=== PATIENT | female | born 1995 | race Caucasian/White ===

== ENCOUNTER 2016-03-23 22:07 | Emergency (ER) | payer OTHER ==
[~2016-03-23] VITALS: Ht 160 cm; Wt 59.8 kg
[2016-03-23 22:11] VITALS: TEMP 36.9; Ht 160 cm; Wt 59.8 kg
[2016-03-23] MEDS ORDERED: METOCLOPRAMIDE HCL INJ 5 MG/ML 2 ML VIAL IV STA (22:51)
[2016-03-23] MEDS ORDERED: SODIUM CHLORIDE 0.9% 1000ML 1,000 ML IV STA (22:51)
[2016-03-23] MEDS ORDERED: DiphenhydrAMINE HCL 50 MG/ML VIAL IV STA (22:51)
[2016-03-23] MEDS ORDERED: DEXAMETHASONE SOD INJ 10 MG/ML VIAL IV ONE (23:00)
[2016-03-23 23:37] LABS: BASO % 0.3 %; BASO ABS # 0.02 K/uL (0-0.2); COMPLETE YES; HEMATOCRIT 38.8 % (37-47); IG% 0.1 %; LYMPH % 31.1 %; LYMPH ABS # 2.13 K/uL (1.2-3.4); MEAN CORPUSCULAR HGB CONC 34.8 g/dl (32-36); MEAN PLATELET VOLUME 10.4 fL (7.4-10.4); MONO % 5.1 %; NEUT % 61.4 %; PLATELET COUNT 189 K/uL (130-400); RED BLOOD COUNT 4.36 M/uL (4.2-5.4); WHITE BLOOD COUNT 6.84 K/uL (4.8-10.8)
[2016-03-23 23:56] LABS: ALT/SGPT 16 U/L (12-78); AST/SGOT 10 U/L (15-37); BLOOD UREA NITROGEN 12 mg/dl (7-18); BUN/CREATININE RATIO 17.2 (10-20); CALCIUM 8.9 mg/dl (8.5-10.1); CARBON DIOXIDE 27 mmol/L (21-32); CHLORIDE 107 mmol/L (98-107); CREATININE 0.72 mg/dl (0.60-1.20); GLUCOSE 99 mg/dl (70-99); POTASSIUM 3.5 mmol/L (3.5-5.1); SODIUM 144 mmol/L (136-145)
[2016-03-23 23:58] LABS: ALKALINE PHOSPHATASE 46 U/L (45-117); C-REACTIVE PROTEIN < 0.29 mg/dl (0-0.29)
[2016-03-24] LABS: PREG INTERNAL NEGATIVE QC NEG CLEAR BACKGROUND; PREG INTERNAL POSITIVE QC POS CONTROL LINE
--- NOTE | 2016-03-24 01:01 | EMERGENCY ROOM VISIT NOTE ---
ED Visit Note First contact with patient: 22:44 I have personally seen and evaluated the patient with the physician trust operations assistant. I agree with the diagnostic/management decisions and have personally been involved in these decisions and agree with the diagnosis.
--- NOTE | 2016-03-24 01:09 | EMERGENCY ROOM VISIT NOTE ---
History First contact with patient: 22:44 Chief Complaint: RASH Stated Complaint: RED/PURPLE RASH ON R LEG,ALONG W/HEADACHE History of Present Illness The patient is a 20 year old female who presents to the Emergency Room with complaints of migraine today who also developed a rash to her right thigh. Patient states the rash is not itchy. It is not raised. No other rashes to her body. No new foods soaps or detergents. No heating pad to the area. No ice pack to the area. She does not sleep on the side. Unknown tick bites. She does not feel at risk for STI's. Patient discussed her headache as throbbing, ranging in severity 6 out of 10 throughout the frontal region similar to prior. Slow onset. Patient denies chest pain, dyspnea, fever, chills, vomiting diarrhea, neck stiffness, myalgias, arthralgias, joint swellings, weakness, vision problems, neck pain, sore throat, cold symptoms. Review of Systems See HPI for pertinent positives & negatives. A total of 10 systems reviewed and were otherwise negative. Past Medical/Surgical History Medical Problems: (1) Abdominal pain (2) Abdominal pain (3) Ankle contusion (4) Ankle contusion (5) Back pain (6) Chemical conjunctivitis (7) Contusion of foot (8) Contusion of foot (9) Cystitis (10) Cystitis (11) Dysuria (12) Dysuria (13) Fall down stairs (14) Fall down stairs (15) fourth degree perineal laceration (16) Herpes genitalis in women (17) Intrauterine (18) Left knee injury (19) Normal labor (20) at early stage (21) at early stage (22) Rash (23) Rash (24) Sprain of knee Surgical Problems: (1) H/O wisdom tooth extraction (2) S/P tonsillectomy and adenoidectomy Family History Gallbladder disease Social History Smoking Status: Never Smoker Alcohol Use: none Drug Use: none Marital Status: in relationship Housing Status: lives with family, lives with significant other Occupation Status: unemployed Current/Historical Medications No Active Prescriptions or Reported Meds Allergies Coded Allergies: No Known Allergies (Unverified , 03/23/16) Physical Exam Vital Signs Date Time Temp Pulse Resp B/P Pulse Ox O2 Delivery O2 Flow Rate FiO2 03/24/16 00:09 79 16 106/70 99 Room Air 03/23/16 22:11 36.9 77 16 119/79 99 Room Air Physical Exam VITALS: Vitals are noted on the nurse's note and reviewed by myself. Vital signs stable. GENERAL: Pleasant female, in no acute distress, nondiaphoretic, well-developed well-nourished. SKIN: Right lateral thigh 5 cm x 4 cm nonraised blanchable dermatitis with no central clearing. No bull's-eye rash. No lymphangitis. No purpura. No petechiae. No erythema nodosum. No rashes to the hands or feet. No oral rashes. The rest of the skin was without rashes, erythema, edema, or bruising. There is no tenting of the skin. Capillary reflex less than 2 seconds. HEAD: Normocephalic atraumatic. EARS: External auditory canals clear, tympanic membranes pearly stephens without erythema or effusion bilaterally. EYES: Pupils equal round and reactive to light and accommodation. Conjunctivae without injection, sclerae without icterus. Extraocular movements intact. NOSE: Patent, turbinates without inflammation or discharge. No sinus tenderness. MOUTH: Mucous membranes moist. Pharynx without erythema or exudate. Uvula midline. Airway patent. Tongue does not deviate. NECK: Supple without nuchal rigidity. No lymphadenopathy. No thyromegaly. Cervical spine is nontender. No JVD. No meningeal signs HEART: Regular rate and rhythm without murmurs gallops or rubs. LUNGS: Clear to auscultation bilaterally without wheezes, rales or rhonchi. No dullness to percussion. No retractions or accessory muscle use. ABDOMEN: Positive bowel sounds x 4. Normal tympanic percussion. Soft, nontender, without masses or organomegaly. Camejo sign negative. No guarding or rebound tenderness. MUSCULOSKELETAL: No muscle atrophy, erythema, or edema noted. NEURO: Patient was alert and oriented to person place and time. Normal sensation to light and sharp touch. No focal neurological deficits. Cranial nerves II through XII grossly intact. No pronator drift. Cerebellar exam intact. Medical Decision & Procedures Laboratory Results 03/23/16 23:20 Red Blood Count 4.36, Mean Corpuscular Volume 89.0, Mean Corpuscular Hemoglobin 31.0, Mean Corpuscular Hemoglobin Concent 34.8, Mean Platelet Volume 10.4, Neutrophils (%) (Auto) 61.4, Lymphocytes (%) (Auto) 31.1, Monocytes (%) (Auto) 5.1, Eosinophils (%) (Auto) 2.0, Basophils (%) (Auto) 0.3, Neutrophils # (Auto) 4.19, Lymphocytes # (Auto) 2.13, Monocytes # (Auto) 0.35, Eosinophils # (Auto) 0.14, Basophils # (Auto) 0.02 03/23/16 23:20 Test 03/23/16 23:20 White Blood Count 6.84 K/uL (4.8-10.8) Red Blood Count 4.36 M/uL (4.2-5.4) Hemoglobin 13.5 g/dL (12.0-16.0) Hematocrit 38.8 % (37-47) Mean Corpuscular Volume 89.0 fL (80-100) Mean Corpuscular Hemoglobin 31.0 pg (25-34) Mean Corpuscular Hemoglobin Concent 34.8 g/dl (32-36) Platelet Count 189 K/uL (130-400) Mean Platelet Volume 10.4 fL (7.4-10.4) Neutrophils (%) (Auto) 61.4 % Lymphocytes (%) (Auto) 31.1 % Monocytes (%) (Auto) 5.1 % Eosinophils (%) (Auto) 2.0 % Basophils (%) (Auto) 0.3 % Neutrophils # (Auto) 4.19 K/uL (1.4-6.5) Lymphocytes # (Auto) 2.13 K/uL (1.2-3.4) Monocytes # (Auto) 0.35 K/uL (0.11-0.59) Eosinophils # (Auto) 0.14 K/uL (0-0.5) Basophils # (Auto) 0.02 K/uL (0-0.2) RDW Standard Deviation 42.3 fL (36.4-46.3) RDW Coefficient of Variation 13.0 % (11.5-14.5) Immature Granulocyte % (Auto) 0.1 % Immature Granulocyte # (Auto) 0.01 K/uL (0.00-0.02) Erythrocyte Sedimentation Rate 2 mm/hr (0-21) Anion Gap 10.0 mmol/L (3-11) Est Creatinine Clear Calc Drug Dose 101.3 ml/min Estimated GFR () 137.8 Estimated GFR (Non- 118.9 BUN/Creatinine Ratio 17.2 (10-20) Calcium Level 8.9 mg/dl (8.5-10.1) Total Bilirubin 0.2 mg/dl (0.2-1) Direct Bilirubin < 0.1 mg/dl (0-0.2) Aspartate Amino Transf (AST/SGOT) 10 U/L (15-37) Alanine Aminotransferase (ALT/SGPT) 16 U/L (12-78) Alkaline Phosphatase 46 U/L (45-117) C-Reactive Protein < 0.29 mg/dl (0-0.29) Total Protein 6.6 gm/dl (6.4-8.2) Albumin 4.0 gm/dl (3.4-5.0) Human Chorionic Gonadotropin, Qual NEG (NEG) Lyme Disease IgG Antibody NEG (NEG) Medications Administered Medications (Trade) Dose Ordered Sig/Fortunato Route Start Time Stop Time Status Last Admin Dose Admin Metoclopramide HCl (Reglan Inj) 10 mg NOW STAT IV 03/23/16 22:51 03/23/16 22:55 DC 03/23/16 23:17 10 MG Diphenhydramine HCl 12.5 mg 12.5 mg NOW STAT IV 03/23/16 22:51 03/23/16 22:55 DC 03/23/16 23:17 12.5 MG Sodium Chloride (Nss 1000ml) 1,000 ml @ 999 mls/hr Q1H1M STAT IV 03/23/16 22:51 03/23/16 23:51 DC 03/23/16 22:51 999 MLS/HR Dexamethasone Sodium Phosphate (Decadron Inj) 10 mg NOW ONCE IV 03/23/16 23:00 03/23/16 23:01 DC 03/23/16 23:17 10 MG ED Course Prior records/ancillary studies reviewed. Triage Nursing notes reviewed. The patient's history was concerning for migraine and a rash. Differential diagnosis: Etiologies such as acute intracranial bleed, CVA, postural headache, meningitis, encephalitis, mass or mass effect, sinusitis, infection, temporal arteritis, trigeminal neuralgia, pseudotumor cerebri, tension headache, cluster headache, carbon monoxide exposure, migraine, contact dermatitis, viral exanthem , urticaria, allergic reaction, Borja-Rivas syndrome, toxic epidermal necrolysis, erythema multiforme, cellulitis, scabies, HSV, varicella, zoster, eczema, staph scalded skin syndrome, fungal infection, as well as others were entertained. Physical examination: Patient was alert and well-appearing ER treatment provided: Decadron, Reglan, Benadryl, IV fluids On reassessment the patient felt better. Diagnostic interpretation by me: The labs revealed no worrisome leukocytosis, anemia or thrombocytopenia.. Negative test The etiology for the patient's rash appears to be consistent with migraine and dermatitis. Patient had unremarkable workup as above. The rash is blanchable. No signs of cellulitis. No palpable abscess. Patient was advised to follow- up family care for further evaluation and workup for the rash. Patient was neurovascularly and neurologically intact. She is well-appearing. Patient had no meningeal signs. She is advised to return to the immediately for headache, fevers, confusion, spreading of rash, worsening signs or symptoms or as needed. By the evaluation outlined above emergent etiologies such as Borja-Rivas syndrome, toxic epidermal necrolysis, erythema multiforme, cellulitis, scabies, HSV, varicella, zoster, staph scalded skin syndrome, urticaria, allergic reaction, as well as others were deemed relatively unlikely. The pt informed about the findings as listed above. All questions were answered and pleased with the treatment. Return instructions were outlined and the patient was discharged in stable condition. case reviewed with my Attending Referral: The patient was referred back to their primary care physician for follow-up in 2 -3 days for a recheck of the current condition. Medical Decision as above Impression Primary Impression: Migraine Additional Impression: Dermatitis Departure Information Dispostion Home / Self-Care Condition GOOD Prescriptions No Active Prescriptions or Reported Meds Forms WORK / SCHOOL INSTRUCTIONS, HOME CARE DOCUMENTATION FORM, IMPORTANT VISIT INFORMATION Patient Instructions A Signature Page, Migraine Meds Lifestyle Change, Rash - [facility], My [facility] Additional Instructions Rest today in a quiet, peaceful, dark environment and get a full 8-10 hrs of sleep tonight. Avoid loud noises, smoke/smoking, alcohol, bright lights, stress, or physical exertion today to minimize the chance the headache may return. Continue current medications. Ibuprofen(Motrin, Advil) may be used for fever or pain. Use 600mg every six hours as needed. Take with food. Avoid using more than 2400mg in a 24 hour period. Do not use 2400mg per day for more than three consecutive days without physician direction. Prolonged inappropriate use can lead to stomach upset or ulcers. (AND/OR) Acetaminophen(Tylenol) may be used for fever or pain. Use 1000mg every six hours as needed. Avoid using more than 3000mg in a 24 hour period. Return to the ER for passing out, worsening headache, vision problems, neck stiffness/pain, fevers, vomiting, worsening of your condition, or as needed. Follow up with your primary physician and/or a neurologist in 2-3 days for a recheck of your current condition. If the rash persists, then follow-up with family care or dermatology. Problem Qualifiers Primary Impression: Migraine Migraine type: without aura Status migrainosus presence: without status migrainosus Intractability: not intractable Qualified Codes: G43.009 - Migraine without aura, not intractable, without status migrainosus
[2016-03-24 01:25] VITALS: BP 114/69; PULSE 78; O2SAT 98
== END 2016-03-24 01:28 | disposition home or self-care (01) ==
LOC: C.EDB 22:08 → C.EDC 03-24 01:28
DX: G43.909 Migraine, unspecified, not intractable, without status migrainosus (principal); L30.9 Dermatitis, unspecified; Z98.818 Other dental procedure status; Z90.89 Acquired absence of other organs

== ENCOUNTER 2016-07-26 19:12 | Emergency (ER) | payer OTHER ==
[~2016-07-26] VITALS: Ht 160 cm; Wt 61.2 kg
[2016-07-26 19:14] VITALS: TEMP 36.9; Ht 160 cm; Wt 61.2 kg
[2016-07-26] MEDS ORDERED: SODIUM CHLORIDE 0.9% 1000ML 1,000 ML IV STA (19:31)
[2016-07-26 20:00] LABS: BASO % 0.2 %; BASO ABS # 0.02 K/uL (0-0.2); COMPLETE YES; EOS % 1.4 %; HEMATOCRIT 45.3 % (37-47); IG% 0.1 %; LYMPH % 19.2 %; LYMPH ABS # 2.04 K/uL (1.2-3.4); MEAN CELL VOLUME 89.5 fL (80-100); MEAN CORPUSCULAR HEMOGLOBIN 30.6 pg (25-34); MEAN CORPUSCULAR HGB CONC 34.2 g/dl (32-36); MEAN PLATELET VOLUME 10.9 fL (7.4-10.4); MONO % 5.5 %; NEUT % 73.6 %; PLATELET COUNT 216 K/uL (130-400); RED BLOOD COUNT 5.06 M/uL (4.2-5.4); WHITE BLOOD COUNT 10.61 K/uL (4.8-10.8)
[2016-07-26 20:16] LABS: URINE APPEARANCE CLEAR (CLEAR); URINE BILIRUBIN NEG (NEG); URINE COLOR YELLOW; URINE NITRITE NEG (NEG); URINE PH 6.5 (4.5-7.5); UROBILINOGEN NEG (NEG); ZZUR CULT IF INDIC CLEAN CATCH NO
[2016-07-26 20:20] LABS: BUN/CREATININE RATIO 18.8 (10-20); CALCIUM 9.2 mg/dl (8.5-10.1); CREATININE 0.69 mg/dl (0.60-1.20); POTASSIUM 3.6 mmol/L (3.5-5.1)
[2016-07-26] MEDS ORDERED: MoRPHine SULFATE 4 MG/ML 1 ML CARP\\VIAL IV STA (20:20)
[2016-07-26 20:23] LABS: ALB/GLOB RATIO 1.4 (0.9-2)
[2016-07-26] MEDS ORDERED: BENZ100C7 PO (20:24)
[2016-07-26] MEDS ORDERED: AMOX875T PO (20:24)
[2016-07-26 20:27] LABS: MANUAL MICROSCOPIC REQUIRED? NO; REVIEW REQ? NO
--- NOTE | 2016-07-26 21:03 | DIAGNOSTIC IMAGING REPORT ---
EXAMINATION: PELVIC ULTRASOUND (transabdominal and endovaginal scanning) CLINICAL HISTORY: Right pelvic pain. History of ovarian cyst. COMPARISON STUDY: CT scan dated December 14, 2015, pelvic ultrasound dated 08/16/2015 FINDINGS: The uterus measured 10.2 x 4.9 x 6.1 cm. The endometrial stripe measured 14 mm. The right ovary measured 42 x 24 x 34 mm.. The left ovary measured 36 x 20 x 17 mm. There is no ultrasonographic evidence of ovarian torsion. It should be noted that ovarian torsion can be present with normal Doppler ultrasonographic findings. There is trace free fluid likely physiologic. IMPRESSION: Normal pelvic ultrasound. Electronically signed by: Dylan Flanagan M.D. 07/26/2016 9:02 PM Dictated Date/Time: 07/26/2016 8:57 PM
[2016-07-26] MEDS ORDERED: ONDANSETRON INJ 2 MG/ML 2 ML VIAL IV STA (21:44)
[2016-07-26] MEDS ORDERED: OPTIRAY 320 IV PRN (22:00)
--- NOTE | 2016-07-26 23:18 | EMERGENCY ROOM VISIT NOTE ---
History First contact with patient: 19:16 Chief Complaint: ABDOMINAL PAIN Stated Complaint: RIGHT AB PAIN Nursing Triage Summary: patient reports pelvic pain and hx of cyst,patient reports low urine output History of Present Illness The patient is a 21 year old female who presents to the Emergency Room with complaints of pelvic pain which began last night. The patient states that she has had pain in her right pelvic region. She also states she has had trouble urinating. She has had ovarian cysts in the past but states this feels different. She has been taking Tylenol without relief. She reports associated nausea with no vomiting. The pain is worse with walking. She denies any vaginal discharge. She is currently sexually active with one partner and denies any chance of STI or . She has a history of but denies any other abdominal surgeries. She rates her discomfort a 5/10. Review of Systems A complete 10 point review of systems was reviewed with the patient with pertinent positives and negatives as per history of present illness. All else were negative. Past Medical/Surgical History Medical Problems: (1) Abdominal pain (2) Abdominal pain (3) Ankle contusion (4) Ankle contusion (5) Back pain (6) Chemical conjunctivitis (7) Contusion of foot (8) Contusion of foot (9) Cystitis (10) Cystitis (11) Dysuria (12) Dysuria (13) Fall down stairs (14) Fall down stairs (15) fourth degree perineal laceration (16) Herpes genitalis in women (17) Intrauterine (18) Left knee injury (19) Normal labor (20) at early stage (21) at early stage (22) Rash (23) Rash (24) Sprain of knee Surgical Problems: (1) H/O wisdom tooth extraction (2) S/P tonsillectomy and adenoidectomy Family History Gallbladder disease Social History Smoking Status: Never Smoker Alcohol Use: none Drug Use: none Marital Status: in relationship Housing Status: lives with family, lives with significant other Occupation Status: unemployed Current/Historical Medications Scheduled Amoxicillin & Pot Clavulanate (Augmentin 875-125 mg), 1 TAB PO BID Scheduled PRN Benzonatate (Benzonatate), 100 MG PO TID PRN for Cough Allergies Coded Allergies: No Known Allergies (Unverified , 07/26/16) Physical Exam Vital Signs Date Time Temp Pulse Resp B/P Pulse Ox O2 Delivery O2 Flow Rate FiO2 07/27/16 01:12 88 18 100/52 98 07/26/16 23:47 91 18 97/55 99 Room Air 07/26/16 20:58 96 18 121/74 99 Room Air 07/26/16 19:14 36.9 80 18 133/66 99 Room Air Physical Exam VITALS: Vitals are noted on the nurse's note and reviewed by myself. Vital signs stable. GENERAL: This is a 21-year-old female, in no acute distress, nondiaphoretic, well-developed well-nourished. SKIN: Capillary reflex less than 2 seconds. HEENT: Normocephalic. PERRLA. EOMI. Nares patent. Mucous membranes moist. Neck is supple without nuchal rigidity. HEART: Regular rate and rhythm without murmurs gallops or rubs. LUNGS: Clear to auscultation bilaterally without wheezes, rales or rhonchi. ABDOMEN: Positive bowel sounds x 4. Soft, moderate tenderness to palpation of the right pelvic region. No guarding or rebound tenderness. PELVIC: External genitalia unremarkable. There is a small amount of whitish vaginal discharge. No evidence of cervicitis. No cervical motion tenderness or adnexal tenderness. NEURO: Patient was alert and oriented to person place and time. Medical Decision & Procedures ER Provider Diagnostic Interpretation: EXAMINATION: PELVIC ULTRASOUND (transabdominal and endovaginal scanning) CLINICAL HISTORY: Right pelvic pain. History of ovarian cyst. FINDINGS: The uterus measured 10.2 x 4.9 x 6.1 cm. The endometrial stripe measured 14 mm. The right ovary measured 42 x 24 x 34 mm.. The left ovary measured 36 x 20 x 17 mm. There is no ultrasonographic evidence of ovarian torsion. It should be noted that ovarian torsion can be present with normal Doppler ultrasonographic findings. There is trace free fluid likely physiologic. IMPRESSION: Normal pelvic ultrasound. Laboratory Results 07/26/16 19:48 Red Blood Count 5.06, Mean Corpuscular Volume 89.5, Mean Corpuscular Hemoglobin 30.6, Mean Corpuscular Hemoglobin Concent 34.2, Mean Platelet Volume 10.9, Neutrophils (%) (Auto) 73.6, Lymphocytes (%) (Auto) 19.2, Monocytes (%) (Auto) 5.5, Eosinophils (%) (Auto) 1.4, Basophils (%) (Auto) 0.2, Neutrophils # (Auto) 7.81, Lymphocytes # (Auto) 2.04, Monocytes # (Auto) 0.58, Eosinophils # (Auto) 0.15, Basophils # (Auto) 0.02 07/26/16 19:48 Test 07/26/16 19:38 07/26/16 19:48 07/26/16 23:05 Urine Color YELLOW Urine Appearance CLEAR (CLEAR) Urine pH 6.5 (4.5-7.5) Urine Specific Pearcy 1.030 (1.000-1.030) Urine Protein NEG (NEG) Urine Glucose (UA) NEG (NEG) Urine Ketones NEG (NEG) Urine Occult Blood NEG (NEG) Urine Nitrite NEG (NEG) Urine Bilirubin NEG (NEG) Urine Urobilinogen NEG (NEG) Urine Leukocyte Esterase NEG (NEG) Urine Test NEG (NEG) White Blood Count 10.61 K/uL (4.8-10.8) Red Blood Count 5.06 M/uL (4.2-5.4) Hemoglobin 15.5 g/dL (12.0-16.0) Hematocrit 45.3 % (37-47) Mean Corpuscular Volume 89.5 fL (80-100) Mean Corpuscular Hemoglobin 30.6 pg (25-34) Mean Corpuscular Hemoglobin Concent 34.2 g/dl (32-36) Platelet Count 216 K/uL (130-400) Mean Platelet Volume 10.9 fL (7.4-10.4) Neutrophils (%) (Auto) 73.6 % Lymphocytes (%) (Auto) 19.2 % Monocytes (%) (Auto) 5.5 % Eosinophils (%) (Auto) 1.4 % Basophils (%) (Auto) 0.2 % Neutrophils # (Auto) 7.81 K/uL (1.4-6.5) Lymphocytes # (Auto) 2.04 K/uL (1.2-3.4) Monocytes # (Auto) 0.58 K/uL (0.11-0.59) Eosinophils # (Auto) 0.15 K/uL (0-0.5) Basophils # (Auto) 0.02 K/uL (0-0.2) RDW Standard Deviation 41.5 fL (36.4-46.3) RDW Coefficient of Variation 12.8 % (11.5-14.5) Immature Granulocyte % (Auto) 0.1 % Immature Granulocyte # (Auto) 0.01 K/uL (0.00-0.02) Anion Gap 4.0 mmol/L (3-11) Est Creatinine Clear Calc Drug Dose 104.9 ml/min Estimated GFR () 142.2 Estimated GFR (Non- 122.7 BUN/Creatinine Ratio 18.8 (10-20) Calcium Level 9.2 mg/dl (8.5-10.1) Total Bilirubin 0.3 mg/dl (0.2-1) Aspartate Amino Transf (AST/SGOT) 15 U/L (15-37) Alanine Aminotransferase (ALT/SGPT) 22 U/L (12-78) Alkaline Phosphatase 63 U/L (45-117) Total Protein 7.6 gm/dl (6.4-8.2) Albumin 4.4 gm/dl (3.4-5.0) Globulin 3.2 gm/dl (2.5-4.0) Albumin/Globulin Ratio 1.4 (0.9-2) Date/Time Source Procedure Growth Status 07/26/16 23:05 Vaginal Swab Trichomonas Preparation - Final Complete Medications Administered Medications (Trade) Dose Ordered Sig/Fortunato Route Start Time Stop Time Status Last Admin Dose Admin Sodium Chloride (Nss 1000ml) 1,000 ml @ 999 mls/hr Q1H1M STAT IV 07/26/16 19:31 07/26/16 20:31 DC 07/26/16 19:31 999 MLS/HR Morphine Sulfate (MoRPHine SULFATE INJ) 4 mg NOW STAT IV 07/26/16 20:20 07/26/16 20:21 DC 07/26/16 20:55 4 MG Ondansetron HCl (Zofran Inj) 4 mg NOW STAT IV 07/26/16 21:44 07/26/16 21:45 DC 07/26/16 21:54 4 MG Magnesium Citrate (Citrate Of Magnesia Soln) 300 ml NOW ONCE PO 07/27/16 01:00 07/27/16 01:01 DC 07/27/16 01:00 300 ML ED Course The patient was evaluated as above. Labs were drawn and IV access was obtained. Patient was medicated with 4 mg morphine IV and 4 mg Zofran IV. Pelvic ultrasound was performed and read by radiology as above. Patient was reevaluated and had continued pain. Risks/benefits of performing an abdominal CT scan were discussed with the patient and she decided to proceed with CT scan. Medical Decision Differential diagnosis includes appendicitis, colitis, gastroenteritis, pelvic inflammatory disease, ovarian cyst, ovarian torsion, ectopic , among others. The patient is a 21-year-old female who presents today complaining of right pelvic pain. Labs revealed no leukocytosis, anemia or concerning electrolyte abnormalities. Urinalysis was not suggestive of infection. Urine was negative. Pelvic ultrasound was performed and was unremarkable. Pelvic exam was not suggestive of PID. Risks and benefits of CT scan were discussed with the patient and she did choose to proceed with CT scan to rule out appendicitis. The patient was signed out to Connie Hathaway PA-C at change of shift pending results of the CT scan. Please see her dictation for CT results and patient disposition. Impression Primary Impression: Right lower quadrant abdominal pain Departure Information Dispostion Home / Self-Care Condition GOOD Referrals No Doctor, Assigned (PCP) Patient Instructions My [facility] Additional Instructions You have been treated in the Emergency Department your Abdominal Pain. Laboratory results and imaging studies have ruled out any emergent causes for your abdominal pain which would warrant admission or surgery. For pain control, you can use the following [id number] medicines (if >12 yo): - Regular strength (325mg/tab) Tylenol (acetaminophen) 2 tabs every 4-6 hours as needed. Do not exceed 12 tablets in a 24 hour period. Avoid taking more than 4 grams (4000 mg) of Tylenol per day. This includes any other sources of acetaminophen you may take on a regular basis. - Regular strength (200 mg/tab) Advil (ibuprofen) 1-2 tabs every 4-6 hours as needed. Do not exceed a dose of 3200 mg per day. Drink plenty of water and stay well hydrated. 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 Return to the emergency department if your symptoms persist despite treatment plan outlined above or if the following symptoms occur: Worsening pain, fevers, chills, worsening nausea/vomiting, or any other new/concerning symptoms.
--- NOTE | 2016-07-27 00:58 | EMERGENCY ROOM VISIT NOTE ---
ED Visit Note Case is signed out to me from Cassy Yoder PA-C, pending CT and reevaluation in stable condition. Please see her dictation for further pressure return the treatment plan. Patient presents with right lower quadrant pain ultrasound. CT was ordered. Concerns for constipation. Patient was advised to take magnesium citrate in increase her fluid and fiber intake. She is advised to follow-up family care in a day or 2 or here in the ER sooner for abdominal pain, fevers, vomiting, worsening signs or symptoms or as needed. Patient does not have an acute abdomen on exam. She is well-appearing. She is tolerating fluids. She is discharged home in stable condition. CT ABDOMEN & PELVIS: Appendix is normal. Moderate amount of retained stool in the right hemicolon, suggesting constipation. No free air. No evidence of bowel obstruction. Liver, gallbladder, pancreas, kidneys and adrenals are unremarkable. Mild splenomegaly. Small amount of free fluid in the pelvis, likely physiologic. Radiologist: Luis Curtis MD #1 right lower quadrant abdominal pain #2 constipation Magnesium citrate: Drink half the bottle when you get home, if you do not have a bowel movement within 6 hours then drink the rest. Recommend that you stay near a toilet. Increase your fluid and fiber intake. Ibuprofen(Motrin, Advil) may be used for fever or pain. Use 600mg every six hours as needed. Take with food. Avoid using more than 2400mg in a 24 hour period. Do not use 2400mg per day for more than three consecutive days without physician direction. Prolonged inappropriate use can lead to stomach upset or ulcers. (AND/OR) Acetaminophen(Tylenol) may be used for fever or pain. Use 1000mg every six hours as needed. Avoid using more than 3000mg in a 24 hour period. Rest and drink plenty of fluids as tolerated. Continue current medications. Avoid strenuous activities and anything that worsens your pain. Resume normal activities once your symptoms resolve. Return to the ER immediately for worsening or persistent abdominal pain, vomiting, fevers, chest pains, difficulty breathing, worsening of your condition , or as needed. Follow up with your primary physician in 2-3 days for a recheck of your current condition. Problem List Medical Problems: (1) Abdominal pain Status: Resolved (2) Abdominal pain Status: Resolved (3) Ankle contusion Status: Resolved (4) Ankle contusion Status: Resolved (5) Back pain Status: Resolved (6) Chemical conjunctivitis Status: Resolved (7) Contusion of foot Status: Resolved (8) Contusion of foot Status: Resolved (9) Cystitis Status: Resolved (10) Cystitis Status: Resolved (11) Dysuria Status: Resolved (12) Dysuria Status: Resolved (13) Fall down stairs Status: Resolved (14) Fall down stairs Status: Resolved (15) fourth degree perineal laceration Status: Resolved (16) Herpes genitalis in women Status: Chronic (17) Intrauterine Status: Resolved (18) Left knee injury Status: Resolved (19) Normal labor Status: Resolved (20) at early stage Status: Resolved (21) at early stage Status: Resolved (22) Rash Status: Resolved (23) Rash Status: Resolved (24) Sprain of knee Status: Resolved Surgical Problems: (1) H/O wisdom tooth extraction Status: Resolved (2) S/P tonsillectomy and adenoidectomy Status: Resolved Current/Historical Medications Scheduled Amoxicillin & Pot Clavulanate (Augmentin 875-125 mg), 1 TAB PO BID Scheduled PRN Benzonatate (Benzonatate), 100 MG PO TID PRN for Cough Allergies Coded Allergies: No Known Allergies (Unverified , 07/26/16) Vital Signs Date Time Temp Pulse Resp B/P Pulse Ox O2 Delivery O2 Flow Rate FiO2 07/26/16 23:47 91 18 97/55 99 Room Air 07/26/16 20:58 96 18 121/74 99 Room Air 07/26/16 19:14 36.9 80 18 133/66 99 Room Air Laboratory Results 07/26/16 19:48 Red Blood Count 5.06, Mean Corpuscular Volume 89.5, Mean Corpuscular Hemoglobin 30.6, Mean Corpuscular Hemoglobin Concent 34.2, Mean Platelet Volume 10.9, Neutrophils (%) (Auto) 73.6, Lymphocytes (%) (Auto) 19.2, Monocytes (%) (Auto) 5.5, Eosinophils (%) (Auto) 1.4, Basophils (%) (Auto) 0.2, Neutrophils # (Auto) 7.81, Lymphocytes # (Auto) 2.04, Monocytes # (Auto) 0.58, Eosinophils # (Auto) 0.15, Basophils # (Auto) 0.02 07/26/16 19:48 Test 07/26/16 19:38 07/26/16 19:48 07/26/16 23:05 Urine Color YELLOW Urine Appearance CLEAR (CLEAR) Urine pH 6.5 (4.5-7.5) Urine Specific [place] 1.030 (1.000-1.030) Urine Protein NEG (NEG) Urine Glucose (UA) NEG (NEG) Urine Ketones NEG (NEG) Urine Occult Blood NEG (NEG) Urine Nitrite NEG (NEG) Urine Bilirubin NEG (NEG) Urine Urobilinogen NEG (NEG) Urine Leukocyte Esterase NEG (NEG) Urine Test NEG (NEG) White Blood Count 10.61 K/uL (4.8-10.8) Red Blood Count 5.06 M/uL (4.2-5.4) Hemoglobin 15.5 g/dL (12.0-16.0) Hematocrit 45.3 % (37-47) Mean Corpuscular Volume 89.5 fL (80-100) Mean Corpuscular Hemoglobin 30.6 pg (25-34) Mean Corpuscular Hemoglobin Concent 34.2 g/dl (32-36) Platelet Count 216 K/uL (130-400) Mean Platelet Volume 10.9 fL (7.4-10.4) Neutrophils (%) (Auto) 73.6 % Lymphocytes (%) (Auto) 19.2 % Monocytes (%) (Auto) 5.5 % Eosinophils (%) (Auto) 1.4 % Basophils (%) (Auto) 0.2 % Neutrophils # (Auto) 7.81 K/uL (1.4-6.5) Lymphocytes # (Auto) 2.04 K/uL (1.2-3.4) Monocytes # (Auto) 0.58 K/uL (0.11-0.59) Eosinophils # (Auto) 0.15 K/uL (0-0.5) Basophils # (Auto) 0.02 K/uL (0-0.2) RDW Standard Deviation 41.5 fL (36.4-46.3) RDW Coefficient of Variation 12.8 % (11.5-14.5) Immature Granulocyte % (Auto) 0.1 % Immature Granulocyte # (Auto) 0.01 K/uL (0.00-0.02) Anion Gap 4.0 mmol/L (3-11) Est Creatinine Clear Calc Drug Dose 104.9 ml/min Estimated GFR () 142.2 Estimated GFR (Non- 122.7 BUN/Creatinine Ratio 18.8 (10-20) Calcium Level 9.2 mg/dl (8.5-10.1) Total Bilirubin 0.3 mg/dl (0.2-1) Aspartate Amino Transf (AST/SGOT) 15 U/L (15-37) Alanine Aminotransferase (ALT/SGPT) 22 U/L (12-78) Alkaline Phosphatase 63 U/L (45-117) Total Protein 7.6 gm/dl (6.4-8.2) Albumin 4.4 gm/dl (3.4-5.0) Globulin 3.2 gm/dl (2.5-4.0) Albumin/Globulin Ratio 1.4 (0.9-2) Date/Time Source Procedure Growth Status 07/26/16 23:05 Vaginal Swab Trichomonas Preparation - Final Complete Medications Administered Medications (Trade) Dose Ordered Sig/Fortunato Route Start Time Stop Time Status Last Admin Dose Admin Sodium Chloride (Nss 1000ml) 1,000 ml @ 999 mls/hr Q1H1M STAT IV 07/26/16 19:31 07/26/16 20:31 DC 07/26/16 19:31 999 MLS/HR Morphine Sulfate (MoRPHine SULFATE INJ) 4 mg NOW STAT IV 07/26/16 20:20 07/26/16 20:21 DC 07/26/16 20:55 4 MG Ondansetron HCl (Zofran Inj) 4 mg NOW STAT IV 07/26/16 21:44 07/26/16 21:45 DC 07/26/16 21:54 4 MG Departure Information Impression Primary Impression: Right lower quadrant abdominal pain Dispostion Home / Self-Care Condition GOOD Referrals No Doctor, Assigned (PCP) Forms HOME CARE DOCUMENTATION FORM, IMPORTANT VISIT INFORMATION Patient Instructions My [facility] Additional Instructions You have been treated in the Emergency Department your Abdominal Pain. Laboratory results and imaging studies have ruled out any emergent causes for your abdominal pain which would warrant admission or surgery. For pain control, you can use the following cuiu-rsv-lwddufu medicines (if >12 yo): - Regular strength (325mg/tab) Tylenol (acetaminophen) 2 tabs every 4-6 hours as needed. Do not exceed 12 tablets in a 24 hour period. Avoid taking more than 4 grams (4000 mg) of Tylenol per day. This includes any other sources of acetaminophen you may take on a regular basis. - Regular strength (200 mg/tab) Advil (ibuprofen) 1-2 tabs every 4-6 hours as needed. Do not exceed a dose of 3200 mg per day. Drink plenty of water and stay well hydrated. 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 Return to the emergency department if your symptoms persist despite treatment plan outlined above or if the following symptoms occur: Worsening pain, fevers, chills, worsening nausea/vomiting, or any other new/concerning symptoms.
[2016-07-27] MEDS ORDERED: MAGNESIUM CITRATE 296 ML/BTL PO ONE (01:00)
[2016-07-27 01:12] VITALS: BP 100/52; PULSE 88; O2SAT 98
--- NOTE | 2016-07-27 07:21 | DIAGNOSTIC IMAGING REPORT ---
ABDOMEN AND PELVIS CT WITH IV AND ORAL CONTRAST CT DOSE: 293.40 mGy.cm HISTORY: Right lower quadrant abdominal pain. TECHNIQUE: Multiaxial CT images of the abdomen and pelvis were performed following the use of intravenous and oral contrast. COMPARISON STUDY: Abdomen and pelvis CT 12/14/2015. FINDINGS: The lung bases are clear. No fractures within the visualized osseous structures. The liver, gallbladder, pancreas, adrenal glands, and kidneys are unremarkable. Normal bladder, uterus, and bilateral adnexa. Trace pelvic free fluid. No bowel wall thickening or obstruction. Normal appendix. No retroperitoneal lymphadenopathy. Stable borderline splenomegaly. Moderate stool within the proximal colon IMPRESSION: 1. No bowel wall thickening or obstruction. 2. Normal appendix. 3. Trace pelvic free fluid. This is likely physiologic. 4. Moderate stool within the proximal colon. 5. Stable borderline splenomegaly. Electronically signed by: Terence Mai M.D. 07/27/2016 7:20 AM Dictated Date/Time: 07/27/2016 7:16 AM
[2016-07-29 11:39] LABS: CHLAMYDIA TRACH RNA*** NOT DETECTED (NOT DETECTED); GC (NEIS GONORRHOEAE)RNA** NOT DETECTED (NOT DETECTED)
[2017-01-12] MEDS ORDERED: OXYC1TAB3 PO (21:13)
== END 2016-07-27 01:14 | disposition home or self-care (01) ==
LOC: C.EDB 19:13 → C.EDC 07-27 01:14
DX: R10.31 Right lower quadrant pain (principal); K59.00 Constipation, unspecified

== ENCOUNTER 2016-08-14 20:17 | Emergency (ER) | payer OTHER ==
[~2016-08-14] VITALS: Ht 160 cm; Wt 61.8 kg
[~2016-08-14 20:17] MED LIST: AMOX875T PO; BENZ100C7 PO
[2016-08-14 20:26] VITALS: TEMP 36.8; O2SAT 97; Ht 160 cm; Wt 61.8 kg
[2016-08-14] MEDS ORDERED: PENICILLIN HOME PACK 250MG (4)BTL PO ONE (20:45)
[2016-08-14] MEDS ORDERED: TYLENOL #3 HOME PACK PO ONE (21:00)
[2016-08-14] MEDS ORDERED: PENI-82 PO (21:21)
--- NOTE | 2016-08-14 21:22 | EMERGENCY ROOM VISIT NOTE ---
ED Visit Note First contact with patient: 20:29 CHIEF COMPLAINT: Toothache HISTORY OF PRESENT ILLNESS: This 21-year-old female patient presented to the emergency department ambulatory complaining of left jaw pain for the past 4 days. The patient states that she has had pain in her left upper jaw for the past 4 days. She called the dentist and states that she does have an appointment set up in 1 month. She has had difficulty eating due to the pain. The pain is now steady and severe and radiates to the face and the left ear. They rate their pain a 7/10 and the ibuprofen and Tylenol they have been taking has not relieved the pain. Denies facial swelling or fever. The patient denies any discharge from the mouth. REVIEW OF SYSTEMS: A 6 system review of systems was completed with positives and pertinent negatives listed in the HPI. ALLERGIES: No known drug allergies MEDICATIONS: No chronic medications PMH: No significant past medical history. SOCIAL HISTORY: The patient lives locally with family. Nonsmoker. PHYSICAL EXAM: Vitals are noted on the nurse's note and reviewed by myself. Vital signs stable. Temperature 36.8C orally. GENERAL: This is a 21-year-old female, in no acute distress, nondiaphoretic, well-developed well-nourished. Mouth: There is minimal swelling of the gums left upper molars without evidence of an obvious abscess. The remainder of the pharynx and tonsils are without erythema, edema, or exudate. The airway is patent. There is no facial swelling , cervical or submandibular lymphadenopathy. The patient appears uncomfortable and in pain. The patient has overall average dental hygiene. EARS: External auditory canals clear, tympanic membranes pearly stephens without erythema or effusion bilaterally. ED COURSE: The patient was evaluated as above. She has minimal swelling of left upper gums. She will be placed on penicillin for possible infection. She was given a home pack of Tylenol with codeine. She was instructed to follow-up with a dentist as soon as possible for further evaluation of her dental pain. She was educated on worrisome symptoms which would necessitate return to the emergency department sooner. Conservative measures were discussed. The patient verbalized understanding of my assessment and treatment plan and was discharged home in good condition. MEDICATION RECONCILIATION: I attest that I have personally reviewed the patient 's current medication list. BLOOD PRESSURE SCREENING: Patient was found to have normal blood pressure on screening and does not require follow-up. DIAGNOSIS: Odontalgia Problem List Medical Problems: (1) Abdominal pain Status: Resolved (2) Abdominal pain Status: Resolved (3) Ankle contusion Status: Resolved (4) Ankle contusion Status: Resolved (5) Back pain Status: Resolved (6) Chemical conjunctivitis Status: Resolved (7) Contusion of foot Status: Resolved (8) Contusion of foot Status: Resolved (9) Cystitis Status: Resolved (10) Cystitis Status: Resolved (11) Dysuria Status: Resolved (12) Dysuria Status: Resolved (13) Fall down stairs Status: Resolved (14) Fall down stairs Status: Resolved (15) fourth degree perineal laceration Status: Resolved (16) Herpes genitalis in women Status: Chronic (17) Intrauterine Status: Resolved (18) Left knee injury Status: Resolved (19) Normal labor Status: Resolved (20) at early stage Status: Resolved (21) at early stage Status: Resolved (22) Rash Status: Resolved (23) Rash Status: Resolved (24) Sprain of knee Status: Resolved Surgical Problems: (1) H/O wisdom tooth extraction Status: Resolved (2) S/P tonsillectomy and adenoidectomy Status: Resolved Current/Historical Medications Scheduled Penicillin V Potassium (Veetids), 500 MG PO QID Allergies Coded Allergies: No Known Allergies (Unverified , 07/26/16) Vital Signs Date Time Temp Pulse Resp B/P (MAP) Pulse Ox O2 Delivery O2 Flow Rate FiO2 08/14/16 20:26 36.8 91 18 125/79 97 Room Air Medications Administered Medications (Trade) Dose Ordered Sig/Fortunato Route Start Time Stop Time Status Last Admin Dose Admin Penicillin V Potassium (Pen-Vk 250MG Home Pack) 1 homepack UD ONCE PO 08/14/16 20:45 08/14/16 20:47 DC 08/14/16 21:07 1 HOMEPACK Acetaminophen/ Codeine Phosphate (TYLENOL W/ CODEINE #3 Home Pack) 1 homepack UD ONCE PO 08/14/16 21:00 08/14/16 21:01 DC 08/14/16 21:08 1 HOMEPACK Departure Information Impression Primary Impression: Dentalgia Dispostion Home / Self-Care Condition GOOD Prescriptions Penicillin V Potassium (Veetids) 500 Mg Tab 500 MG PO QID, #40 TAB Prov: Cassy Yoder ., CASSANDRA 08/14/16 Referrals No Doctor, Assigned (PCP) Patient Instructions My [facility] Additional Instructions You have been treated in the Emergency Department for Dental Pain. You have been prescribed Tylenol with Codeine to be used for pain control. This is a narcotic medication. You cannot drive or consume alcohol while on this medicine. This medicine should only be used for pain that cannot be controlled with uxzz-afy-ttkredt pain medicines. You were prescribed penicillin to be taken as prescribed. This is an antibiotic. All antibiotics have the potential to cause diarrhea. Stop this medication and contact a medical provider if you were to develop any significant adverse side effects including: wheezing, shortness of breath, passing out, vomiting, or a diffuse rash. Always take antibiotics as directed and COMPLETE the ENTIRE course regardless of the improvement of your symptoms. For pain control, you can use the following uqqr-epn-jmetdah medicines (if >12 yo): - Regular strength (325mg/tab) Tylenol (acetaminophen) 2 tabs every 4-6 hours as needed. Do not exceed 12 tablets in a 24 hour period. Avoid taking more than 4 grams (4000 mg) of Tylenol per day. This includes any other sources of acetaminophen you may take on a regular basis. - Regular strength (200 mg/tab) Advil (ibuprofen) 1-2 tabs every 4-6 hours as needed. Do not exceed a dose of 3200 mg per day. Refrain from smoking cigarettes or using chewing tobacco until you have been evaluated by your dentist. Keeping beverages lukewarm and consuming soft foods can decrease your pain. Warm compresses over the affected area may offer some relief. You MUST seek evaluation of your dental pain by a dentist following your visit to the Emergency Department. The Emergency Department is not capable of treating dental issues long-term. You should call your dentist as soon as possible to make an appointment for evaluation of your dental pain. Follow up with Dr. Addison [phone] [place] [address], [address] Return to the emergency department if you develop the following symptoms despite treatment course outlined above: fever, intractable pain, increased redness, swelling, or purulent discharge.
[2016-08-14 21:26] VITALS: BP 127/73; PULSE 87
[2017-01-12] MEDS ORDERED: OXYC1TAB3 PO (21:13)
== END 2016-08-14 21:20 | disposition home or self-care (01) ==
LOC: C.EDB 20:18 → C.EDD 21:20
DX: K08.89 Other specified disorders of teeth and supporting structures (principal)

== ENCOUNTER 2017-02-12 18:16 | Emergency (ER) | payer OTHER ==
[~2017-02-12] VITALS: Ht 160 cm; Wt 63.6 kg
[~2017-02-12 18:16] MED LIST changes: -AMOX875T PO; -BENZ100C7 PO; +OXYC1TAB3 PO
[2017-02-12 18:22] VITALS: TEMP 36.4; Ht 160 cm; Wt 63.6 kg
[2017-02-12] MEDS ORDERED: LIDO/EPINEPHRINE/SOD BICARB 20 ML VIAL INFIL ONE (18:35)
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
[2017-02-12 19:08] VITALS: BP 117/62; PULSE 75; O2SAT 99
== END 2017-02-12 19:08 | disposition home or self-care (01) ==
LOC: C.EDB 18:17 → C.EDD 19:08
DX: S61.012A Laceration without foreign body of left thumb without damage to nail, initial encounter (principal); W26.8XXA Contact with other sharp object(s), not elsewhere classified, initial encounter; Z87.440 Personal history of urinary (tract) infections

== ENCOUNTER 2017-04-28 09:40 | Emergency (ER) | payer OTHER ==
[~2017-04-28] VITALS: Ht 160 cm; Wt 62.8 kg
[2017-04-28 09:47] VITALS: TEMP 37.6; Ht 160 cm; Wt 62.8 kg
[2017-04-28] MEDS ORDERED: IBUPROFEN 600 MG TAB PO STA (11:16)
[2017-04-28] MEDS ORDERED: OXYC1TAB3 PO (11:20)
[2017-04-28] MEDS ORDERED: NEOM1SUS21 OT (11:20)
[2017-04-28] MEDS ORDERED: ONDA4TAB10 SL (11:20)
[2017-04-28] MEDS ORDERED: AMOX875T PO (11:20)
[2017-04-28 11:26] VITALS: BP 114/80; PULSE 105; O2SAT 100
[2017-04-28] MEDS ORDERED: ONDANSETRON 4MG OD TAB PO ONE (11:30)
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
== END 2017-04-28 11:27 | disposition home or self-care (01) ==
LOC: C.EDB 09:41 → C.EDD 11:27
DX: H60.311 Diffuse otitis externa, right ear (principal); R59.0 Localized enlarged lymph nodes

== ENCOUNTER → 2017-07-12 | Outpatient (CLI) | payer OTHER ==
[~2017-07-12] MED LIST changes: +NEOM1SUS21 OT; +ONDA4TAB10 SL
== END | disposition home or self-care (01) ==
LOC: C.LAB1850 12:19
PROVIDERS: ATTEND Obstetrics & Gynecology
DX: R39.9 Unspecified symptoms and signs involving the genitourinary system (principal)

== ENCOUNTER 2017-07-30 19:15 | Emergency (ER) | payer OTHER ==
[~2017-07-30] VITALS: Ht 160 cm; Wt 54.5 kg
[2017-07-30 19:28] VITALS: TEMP 36.8; Ht 160 cm; Wt 54.5 kg
[2017-07-30] MEDS ORDERED: IBUPROFEN 800 MG TAB PO STA (19:50)
--- NOTE | 2017-07-30 20:28 | DIAGNOSTIC IMAGING REPORT ---
LEFT ELBOW 3 VIEWS HISTORY: left elbow pain, fall COMPARISON: None. FINDINGS: There is no fracture or dislocation. Soft tissues are unremarkable. No elbow effusion. IMPRESSION: No fractures. Electronically signed by: Terence Mai M.D. 07/30/2017 8:27 PM Dictated Date/Time: 07/30/2017 8:27 PM
--- NOTE | 2017-07-30 20:28 | DIAGNOSTIC IMAGING REPORT ---
L ANKLE MIN 3 VIEWS ROUTINE, L FOOT MIN 3 VIEWS ROUTINE CLINICAL HISTORY: left ankle and foot pain, fall COMPARISON STUDY: None. FINDINGS: No fracture or dislocation. Soft tissues are unremarkable. The Lisfranc joint is intact. The ankle mortise is well-maintained. IMPRESSION: No fracture or dislocation within the left ankle or left foot. Electronically signed by: Terence Mai M.D. 07/30/2017 8:26 PM Dictated Date/Time: 07/30/2017 8:24 PM
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
[2017-07-30] MEDS ORDERED: NORCO 5/325MG HOME PACK PO ONE (20:45)
[2017-07-30 20:55] VITALS: BP 112/67; PULSE 78; O2SAT 100
== END 2017-07-30 20:56 | disposition home or self-care (01) ==
LOC: C.EDB 19:16 → C.EDD 20:56
DX: M25.572 Pain in left ankle and joints of left foot (principal); W10.8XXA Fall (on) (from) other stairs and steps, initial encounter; Y93.89 Activity, other specified; Y99.8 Other external cause status; Z91.81 History of falling; Z87.440 Personal history of urinary (tract) infections; Z98.818 Other dental procedure status; Z98.891 History of uterine scar from previous surgery; Z90.89 Acquired absence of other organs